=== PATIENT | female | born 1970 | race American Indian/Alaskan Native ===

== ENCOUNTER 2018-08-30 10:28 | Emergency (ER) | payer SELFPAY ==
--- NOTE | 2018-08-30 11:22 | XRay Report ---
RIGHT SHOULDER, 3 VIEWS: HISTORY: right shoulder pain. Normal bone mineralization. No acute osseous injury or joint pathology is detected. The soft tissues are unremarkable. IMPRESSION: Right shoulder within normal limits.
--- NOTE | 2018-08-30 11:23 | XRay Report ---
LUMBOSACRAL SPINE, 3 VIEWS: History: Back pain Findings: The vertebral bodies, disk spaces and posterior elements are intact. No compression deformity or malalignment. Mild diffuse facet arthropathy is suspected which is most pronounced at L4-5 and L5-S1. The SI joints are symmetric and unremarkable. Impression: Mild facet arthropathy. No evidence for acute injury to the lumbar spine.
--- NOTE | 2018-08-30 11:23 | XRay Report ---
RIGHT KNEE, 3 views: History: Pain and swelling after fall. The bony architecture is intact without evidence of fracture or dislocation. Mild medial compartment osteoarthritic changes and mild retropatellar spurring is identified. No significant soft tissue abnormality is seen. IMPRESSION: Mild bicompartmental osteoarthritis. No acute process identified.
[2018-08-30] MEDS ORDERED: NORCO 5/325 PO ONE (12:55)
--- NOTE | 2018-08-30 12:57 | Emergency Department Report ---
ED Fall HPI - General Chief Complaint: Fall Stated Complaint: FALL/R KNEE/BACK/R SHOULDER PAIN Source: patient Mode of arrival: Ambulatory - History of Present Illness Initial Comments: This is a 47-year-old after [place] female who presents to the emergency room with multiple complaints status post fall on yesterday. 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 She is unsure of height of fall. She reports headache, right shoulder, right knee, and low back pain. Patient reports pain is worse with movement of right shoulder and right knee. She denies numbness or tingling, bruising, swelling, loss of consciousness, nausea or vomiting, paresthesias, bowel or urinary changes. MD Complaint: fall Onset/Timin -: days(s) Fall From: from height (distance) When Fall Occurred: 24 hours [employer] Fall Witnessed: yes, by family Place Fall Occurred: street Loss of Consciousness: none Prolonged Down Time?: no Symptoms Prior to Fall: none Location: head, back Location - Extremities: Right: Shoulder, Knee Severity: severe Severity scale (0 -10): 9 Quality: aching Associated Symptoms: denies - Related Data Previous Rx's Medication Instructions Recorded Last Taken Type Methocarbamol [Robaxin] 500 mg PO BID PRN #20 tablet 08/30/18 Unknown Rx traMADol [Ultram 50 MG tab] 50 mg PO Q6HR PRN #12 tablet 08/30/18 Unknown Rx Allergies Allergy/AdvReac Type Severity Reaction Status Date / Time ibuprofen Allergy Anaphylaxis Verified 08/30/18 10:31 ED Review of Systems ROS: Stated complaint: FALL/R KNEE/BACK/R SHOULDER PAIN Other details as noted in HPI Constitutional: denies: chills, fever Respiratory: denies: cough, shortness of breath, wheezing Cardiovascular: denies: chest pain, palpitations Gastrointestinal: denies: abdominal pain, nausea, diarrhea Musculoskeletal: back pain, arthralgia (neck pain and low back pain). denies: joint swelling Skin: denies: rash, lesions Neurological: headache. denies: weakness, paresthesias Psychiatric: denies: anxiety, depression ED Past Medical Hx - Past Medical History Previous Medical History?: No - Surgical History Past Surgical History?: Yes Additional Surgical History: Right foot surgery 2016 - Social History Smoking Status: Never Smoker Substance Use Type: None - Medications Home Medications: Home Medications Medication Instructions Recorded Confirmed Last Taken Type Methocarbamol [Robaxin] 500 mg PO BID PRN #20 tablet 08/30/18 Unknown Rx traMADol [Ultram 50 MG tab] 50 mg PO Q6HR PRN #12 tablet 08/30/18 Unknown Rx ED Physical Exam - General Limitations: No Limitations General appearance: alert, in no apparent distress, obese - Neck Neck exam: Present: tenderness (trapezius muscle tenderness on right, no swelling or erythema), full ROM. Absent: lymphadenopathy, thyromegaly - Respiratory Respiratory exam: Present: normal lung sounds bilaterally. Absent: respiratory distress - Cardiovascular Cardiovascular Exam: Present: regular rate, normal rhythm. Absent: systolic murmur, diastolic murmur, rubs, gallop - GI/Abdominal GI/Abdominal exam: Present: soft, normal bowel sounds. Absent: distended, tenderness, guarding, rebound, rigid - Expanded Upper Extremity Exam Right Shoulder Exam: Present: full ROM (pain with ROM). Absent: tenderness, swelling, abrasion, laceration, ecchymosis, deformity, crepidus, dislocation, erythema, tenderness over AC joint Upper Arm exam: Present: normal inspection, full ROM Elbow exam: Present: normal inspection, full ROM Forearm Wrist exam: Present: normal inspection, full ROM Hand Wrist exam: Present: normal inspection, full ROM Neuro motor exam: Present: wrist extension intact, thumb opposition intact, thumb IP flexion intact, thumb adduction intact, fingers 2-5 abduction intact Neurosensory exam: Present: radial nerve intact, ulnar nerve intact, median nerve intact Vascular: Present: normal capillary refill, radial pulse - Expanded Lower Extremity Exam Right Hip exam: Present: normal inspection, full ROM Upper Leg exam: Present: normal inspection, full ROM Knee exam: Present: tenderness, pain w/ pronation/supination, full knee extension. Absent: full ROM (limited range of motion secondary), swelling, abrasion, laceration, ecchymosis, deformity, crepidus, dislocation, erythema, effusion, posterior draw sign Lower Leg exam: Present: normal inspection, full ROM Ankle exam: Present: normal inspection, full ROM Foot/Toe exam: Present: normal inspection, full ROM Neuro vascular tendon exam: Present: no vascular compromise Gait: Positive: observed and limited by pain - Back Exam Back exam: Present: full ROM, paraspinal tenderness. Absent: muscle spasm, rash noted - Neurological Exam Neurological exam: Present: alert, oriented X3, normal gait - Psychiatric Psychiatric exam: Present: normal affect, normal mood - Skin Skin exam: Present: warm, dry, intact, normal color. Absent: rash ED Course Vital Signs 08/30/18 10:36 Temperature 98.2 F Pulse Rate 86 Respiratory 16 Rate Blood Pressure 129/88 O2 Sat by Pulse 100 Oximetry ED Medical Decision Making - Radiology Data Radiology results: report reviewed RIGHT SHOULDER, 3 VIEWS: HISTORY: right shoulder pain. Normal bone mineralization. No acute osseous injury or joint pathology is detected. The soft tissues are unremarkable. IMPRESSION: Right shoulder within normal limits. LUMBOSACRAL SPINE, 3 VIEWS: History: Back pain Findings: The vertebral bodies, disk spaces and posterior elements are intact. No compression deformity or malalignment. Mild diffuse facet arthropathy is suspected which is most pronounced at L4-5 and L5-S1. The SI joints are symmetric and unremarkable. Impression: Mild facet arthropathy. No evidence for acute injury to the lumbar spine. RIGHT KNEE, 3 views: History: Pain and swelling after fall. The bony architecture is intact without evidence of fracture or dislocation. Mild medial compartment osteoarthritic changes and mild retropatellar spurring is identified. No significant soft tissue abnormality is seen. IMPRESSION: Mild bicompartmental osteoarthritis. No acute process identified. PROCEDURE: CT HEAD/BRAIN WO CON TECHNIQUE: Computerized tomography of the head was performed without contrast material. CT DOSE LENGTH PRODUCT: 1035.5 mGycm HISTORY: Headache after fall COMPARISONS: None . FINDINGS: Skull and scalp: Normal . Paranasal sinuses: Normal . Ventricles and subarachnoid spaces: Normal . Cerebrum: No evidence of hemorrhage, acute infarction or mass . Cerebellum and brainstem: No evidence of hemorrhage, acute infarction or mass . Vasculature: Normal . Other: None . IMPRESSION: Normal Examination . - Medical Decision Making Patient was examined by me. Vitals are normal and patient is in no acute distress. Obtained a radiograph which were dictated by radiologist. Right shoulder within normal limits. Mild facet arthropathy. No evidence for acute injury to the lumbar spine. Mild bicompartmental osteoarthritis. No acute process identified. Normal Examination. Patient informed of results. Patient given Arminto while in the ER. Findings are susceptible to muscle strain. A knee immobilizer were applied to right knee and patient given crutches with educati on. Referral to orthopedics for follow-up to rule out tear. Start muscle relaxers and pain medication. Plan discussed with patient to discharge home and treat outpatient. He agrees with ER plan. Patient discharged home in stable condition. Follow up with PCP in 2-3 days. Critical care attestation.: If time is entered above; I have spent that time in minutes in the direct care of this critically ill patient, excluding procedure time. ED Disposition Clinical Impression: Neck pain, Right anterior knee pain, Muscle strain Fall Qualifiers: Encounter type: initial encounter Qualified Code(s): W19.XXXA - Unspecified fall, initial encounter Right shoulder pain Qualifiers: Chronicity: acute Qualified Code(s): M25.511 - Pain in right shoulder Disposition: TO HOME OR SELFCARE Is pt being admited?: No Does the pt Need Aspirin: No Condition: Stable Instructions: Arthralgia (ED), Muscle Strain (ED), Lumbar Radiculopathy (ED) Additional Instructions: Rest Use ice or heat on affected area for 20 minutes and off for 2 hours. Take pain medication as needed for pain. Don't drive or operate heavy machinery while taking muscle relaxers because they may cause drowsiness. Follow up with Primary Care Provider in 2-3 days. Prescriptions: Methocarbamol [Robaxin] 500 mg PO BID PRN #20 tablet PRN Reason: Muscle Spasm traMADol [Ultram 50 MG tab] 50 mg PO Q6HR PRN #12 tablet PRN Reason: Pain Referrals: CALISTA RIOSREHRERS[place]G MD GUILHERME [Primary Care Provider] - 3-5 Days ABDIAS GOLDMAN MD [Staff Physician] - 3-5 Days [facility] [Provider Group] - 3-5 Days Time of Disposition: 13:42
--- NOTE | 2018-08-30 13:06 | Cat Scan Report ---
PROCEDURE: CT HEAD/BRAIN WO CON TECHNIQUE: Computerized tomography of the head was performed without contrast material. CT DOSE LENGTH PRODUCT: 1035.5 mGycm HISTORY: Headache after fall COMPARISONS: None . FINDINGS: Skull and scalp: Normal . Paranasal sinuses: Normal . Ventricles and subarachnoid spaces: Normal . Cerebrum: No evidence of hemorrhage, acute infarction or mass . Cerebellum and brainstem: No evidence of hemorrhage, acute infarction or mass . Vasculature: Normal . Other: None . IMPRESSION: Normal Examination . This document is electronically signed by Moni Hopper., August 30 2018 01:04:57 PM ET
[2018-08-30 14:10] VITALS: BP 124/84
== END 2018-08-30 14:09 | disposition home or self-care (01) ==
LOC: ED 10:28
DX: S39.012A Strain of muscle, fascia and tendon of lower back, initial encounter (principal); R51 Headache; M54.2 Cervicalgia; M25.511 Pain in right shoulder; M25.561 Pain in right knee; Z88.6 Allergy status to analgesic agent; W19.XXXA Unspecified fall, initial encounter; Y93.89 Activity, other specified; Y92.410 Unspecified street and highway as the place of occurrence of the external cause; Y99.8 Other external cause status
CPT/HCPCS: 70450; 72100